=== PATIENT | male | born 1985 | race Two or more races ===

== ENCOUNTER 2023-03-28 20:53 | Emergency (ER) | payer BC, OTHER ==
[~2023-03-28] VITALS: Ht 172.7 cm; Wt 86.4 kg
[2023-03-28] MEDS ORDERED: BACITRACIN TOP OINT 1 UD PKG TOP ONE ×2 (22:14→22:30)
[2023-03-28 23:48] LABS: Basophils # (auto) 0 10 ^3/uL (0-0.2); Basophils % (auto) 0.5 % (0.0-2.0); Eosinophils # (auto) 0.1 10 ^3/uL (0-0.8); Eosinophils % (auto) 1.5 % (0.0-7.0); Hematocrit 39.8 % (41.0-53.0); Hemoglobin 13.3 g/dL (13.5-17.5); Lymphocytes # (auto) 3.1 10 ^3/uL (0.4-5.4); Lymphocytes % (auto) 48.3 % (10.0-50.0); Mean Corpuscular Hemoglobin 30.5 pg (28.0-32.0); Mean Corpuscular Hgb Conc. 33.5 g/dL (32.0-36.0); Mean Corpuscular Volume 91.1 fL (80.0-100.0); Monocytes # (auto) 0.5 10 ^3/uL (0-1.3); Monocytes % (auto) 8.2 % (0.0-12.0); Neutrophils # (auto) 2.7 10 ^3/uL (1.6-8.6); Neutrophils % (auto) 41.5 % (37.0-80.0); Red Blood Cells 4.37 10^6/uL (4.5-5.90); Red Cell Distribution Width 13.9 % (11.8-14.3); White Blood Cell 6.4 10^3/uL (4.4-10.8)
[2023-03-29 00:02] LABS: Chloride 105 mmol/L (98-107); Potassium 3.5 mmol/L (3.5-5.1); Sodium 138 mmol/L (136-145)
[2023-03-29 00:03] LABS: Anion Gap 7 (5-15); Carbon Dioxide 26 mmol/L (20-30)
[2023-03-29 00:08] LABS: BUN/Creatinine Ratio 19.4 (10.0-20.0); Blood Urea Nitrogen 19 mg/dL (9-23); Glucose 96 mg/dL (74-106)
[2023-03-29] MEDS ORDERED: KETOROLAC TROMETH 60MG/2ML VIAL IM ONE (01:45)
[2023-03-29] MEDS ORDERED: TETANUS-DIPTH-ACEL PERTUSSIS 0.5ML SYR Tdap IM ONE (01:45)
[2023-03-29] MEDS ORDERED: IBUP-1456 PO (01:56)
[2023-03-29] MEDS ORDERED: CEPH500C PO (01:56)
[2023-03-29 05:19] VITALS: BP 124/73; PULSE 63; RESP 18; TEMP 97.9; O2SAT 98
== END 2023-03-29 04:38 | disposition home or self-care (01) ==
LOC: ER 20:53
DX: S71.112A Laceration without foreign body, left thigh, initial encounter (principal); Z79.899 Other long term (current) drug therapy; W26.0XXA Contact with knife, initial encounter; Y93.89 Activity, other specified; Y92.89 Other specified places as the place of occurrence of the external cause; Y99.8 Other external cause status
CPT/HCPCS: 12002; 36415; 73552; 73701; 80048; 85025; 90471; 90715; 96372; 99285; J1885; Q9967